=== PATIENT | female | born 1955 | race Caucasian/White ===

== ENCOUNTER 2018-01-09 10:58 | Day surgery (SDC) | END 2018-01-09 15:30 | disposition home or self-care (01) ==

== ENCOUNTER 2018-04-29 07:21 | Day surgery (SDC) | payer OTHER ==
[2018-04-28 14:36] VITALS: BMI 22.0
[2018-04-29] VITALS (16 sets, daily range): BP systolic 88–126; BP diastolic 47–70; PULSE 66–95; RESP 13–22; Ht 163.8 cm; Wt 58.5 kg
[~2018-04-29] VITALS: Ht 163.8 cm; Wt 58.5 kg
[~2018-04-29 07:21] MED LIST: CEFAZOLIN 2 GM/50 ML (PMX) 50 ML IVPB SCH; NO ACTIVE MEDS; SOD CHLORIDE 0.9% 1,000 ML IV SCH
--- NOTE | 2018-04-29 10:08 | PREAC ---
Date/Time of Note Date/Time of Note DATE: 04/29/18 TIME: 10:06 Anesthesia Eval and Record Evaluation Time Pre-Procedure Interview DATE: 04/29/18 TIME: 10:06 Age 62 Sex female NPO: 8 hrs Preoperative diagnosis hemorrhoids Planned procedure hemorrhoidectomy, anal advancement flap Past Medical History Past Medical History: Includes Cardio: Arrythmia (ST abnormality, has had heart cath and was told otherwise normal findings, sees plant mechanic once a year as planned. ASYMPTOMATIC. METS > 4. ) Surgery & Anesthesia Issues Hx of PONV (severe PONV every anesthetic) Meds Anticoagulation: No Beta Zuleyka within 24 hr: No Reason Beta Zuleyka not given: Pt. not on B-Zuleyka Discontinued Reported Medications [No Active Meds] No Conflict Check 01/09/18 Current Medications Cefazolin Sodium/ Dextrose 50 ml @ 100 mls/hr PREOP IVPB ; Start 04/29/18 at 06:00; Stop 04/29/18 at 17:00 Sodium Chloride 1,000 ml @ 75 mls/hr [id number] IV ; Start 04/29/18 at 06:00; Stop 04/29/18 at 17:00 Meds reviewed: Yes (NO MEDS) Allergies Coded Allergies: No Known Allergy (Unverified , 04/29/18) Allergies Reviewed: Yes Labs/Studies Labs Reviewed: Reviewed by anesthesiologist test: N/A Studies: ECG (NSR with ST abnormality), CXR Pre-procedure Exam Last vitals Vital Signs Date Temp Pulse Resp B/P (MAP) Pulse Ox O2 O2 Flow FiO2 Time Delivery Rate 04/29/18 98.1 95 16 116/70 98 08:52 (85) Airway: Adequate mouth opening, Adequate thyromental dist Mallampati: Mallampati I Teeth: Normal Lung: Normal Heart: Normal ASA Physical Status ASA physical status: 2 Emergency: None Planned Anesthetic General/MAC: ETT Planned Pain Management Parenteral pain med, Local by surgeon Pre-operative Attestations Prior to commencing anesthesia and surgery, the patient was re-evaluated, there was verification of: *The patient's identity *The results of appropriate recent lab work and preoperative vital signs *The above evaluation not changing prior to induction *Anesthetic plan, risk benefits, alternative and complications discussed with patient/family; questions answered; patient/family understands, accepts and wishes to proceed. DEMETRA LUNDYb 27, 2019 10:08
--- NOTE | 2018-04-29 11:40 | HPN ---
Date/Time of Note Date/Time of Note DATE: 04/29/18 TIME: 11:39 Interval H&P Admission Note Pt. seen H&P reviewed: No system changes DANNA COWART Apr 29, 2018 11:40
[2018-04-29] MEDS ORDERED: BUPIVACAINE 0.5%/EPI (SDV) 30 ML INJ ONE (11:49)
[2018-04-29] MEDS ORDERED: FENTAnyl 50 MCG/ML VIAL ONE (12:03)
[2018-04-29] MEDS ORDERED: GLYCOPYRROLATE 0.4 MG INJ ONE (12:15)
[2018-04-29] MEDS ORDERED: SUCCINYLCHOLINE CHLORIDE 100 MG/5 ML SYG IV ONE (12:15)
[2018-04-29] MEDS ORDERED: LIDOCAINE 100 MG SYRINGE ONE (12:15)
[2018-04-29] MEDS ORDERED: CEFAZOLIN 1 GM INJ ONE (12:15)
[2018-04-29] MEDS ORDERED: PROPOFOL 20 ML ONE (12:15)
[2018-04-29] MEDS ORDERED: NEOSTIGMINE 10 MG INJ ONE (12:15)
[2018-04-29] MEDS ORDERED: ROCURONIUM 50 MG INJ ONE (12:15)
[2018-04-29] MEDS ORDERED: ONDANSETRON 4 MG INJ ONE (12:41)
[2018-04-29] MEDS ORDERED: DEXAMETHASONE 4 MG/ML 5 ML INJ ONE (12:41)
[2018-04-29] MEDS ORDERED: ALBUTEROL 0.083% (NEB) 2.5 MG/3 ML AMP HHN PRN (13:00)
[2018-04-29] MEDS ORDERED: MEPERIDINE 25 MG INJ IV PRN (13:00)
[2018-04-29] MEDS ORDERED: ONDANSETRON 4 MG INJ IV PRN (13:00)
[2018-04-29] MEDS ORDERED: DIPHENHYDRAMINE 50 MG INJ IV PRN (13:00)
[2018-04-29] MEDS ORDERED: HYDROmorphONE 1 MG/5 ML IV SYRINGE IV PRN ×3 (13:00)
[2018-04-29] MEDS ORDERED: METOCLOPRAMIDE 10 MG INJ IV PRN (13:00)
[2018-04-29] MEDS ORDERED: FENTAnyl 50 MCG/ML VIAL IV PRN ×3 (13:00)
--- NOTE | 2018-04-29 13:36 | OPR ---
Date/Time of Note Date/Time of Note DATE: 04/29/18 TIME: 13:27 Operative Report Procedure Date: Apr 29, 2018 Preoperative Diagnosis Engorged grade III hemorrhoids left lateral posterior Postoperative Diagnosis Same Operation/Procedure Performed Excision of engorged internal and external hemorrhoids right posterior cushion Excision of engorged internal hemorrhoids left lateral cushion Rectal mucosal advancement flap Surgeon Jose De Jesus Cowart MD FACS Ncr Operator None Anesthesia Type: general Anesthesiologist: MARY VÁZQUEZ Estimated Blood Loss: 0 - 10 ml's Transfusion none Specimen Hemorrhoids left lateral cushion External and internal hemorrhoids right posterior cushion Grafts/Implants none Complications none Pt Condition Post Procedure: stable Disposition: PACU Indications This patient has been experiencing intermittent right red blood per rectum with bowel movements. She was diagnosed in the office with engorged internal and external hemorrhoids were causing pain discomfort and bleeding. For sym ptomatically she will undergo hemorrhoidectomy. Procedure Description Patient was placed in lithotomy position. 20 mL of a mixture of quarter percent Marcaine and 1% lidocaine were infiltrated in the anoderm. At the left lateral question where a large engorged hemorrhoid was noted internally internal hemorrhoids were grasped with the aid of a Álvaro clamp and thereafter the mucosa of the anorectal junction was incised with the use of the LigaSure device. The hemostat clamp was then used to create a mucosal flap the layer between the mucosa and the submucosa underneath within which the hemorrhoidal plexus could be visualized. The hemorrhoidal plexus was isolated using blunt dissection with a gauze pad away from the rectal sphincter muscle fibers and isolated. Thereafter the LigaSure device was used to transect across the hemorrhoidal plexus. The endoscope was then used to inspect the remaining hemorrhoids in the right posterior hemorrhoidal plexus was noted to be engorged. Again the mucosa was from the underlying venous hemorrhoidal plexus and these were circumferentially dissected off the anal sphincter muscle fibers and thereafter transected with the LigaSure device. The patient's rectal mucosa was noted to be retracting and therefore I determined that for hemostasis and improvement in functionality the patient would benefit from a fixing this mucosal flap to the anoderm. Using 4-0 chromic sutures the rectal mucosa was approximated with the area near the anoderm where the hemorrhoidal plexus was dissected and the hemorrhoidectomy was carried out. The area was not fully closed in order to allow for any hematoma or fluid in the dissected field to drain out. The area was inspected and confirmed to be hemostatic and thereafter fibrillar was rolled and the role of fibrillar was placed into the anus. Rectal exam upon completion of the procedure revealed no evidence of anal stenosis and confirmed the rectum to be hemostatic and no other abnormalities to exist except for hemorrhoidal plexus in the right anterior plexus which I left alone in order to prevent anal stenosis. JOSE DE JESUS COWART Apr 29, 2018 13:36
[2018-04-29] MEDS ORDERED: HYDROCODONE/APAP (5/325) TAB PO PRN ×2 (14:00)
--- NOTE | 2018-04-29 15:15 | PAC ---
Date/Time of Note Date/Time of Note DATE: 04/29/18 TIME: 15:15 Post-Anesthesia Notes Post-Anesthesia Note Last documented vital signs Vital Signs Date Temp Pulse Resp B/P (MAP) Pulse Ox O2 O2 Flow FiO2 Time Delivery Rate 04/29/18 78 13 101/59 98 Room Air 14:16 (73) 04/29/18 98.1 13:22 Activity: WNL Respiratory function: WNL Cardiovascular function: WNL Mental status: Baseline Pain reasonably controlled: Yes Hydration appropriate: Yes Nausea/Vomiting absent: Yes MARY VÁZQUEZ Apr 29, 2018 15:15
[2018-04-29] MEDS ORDERED: CALCIUM CARBONATE 500 MG CHEW TAB PO ONE (16:30)
[2018-04-29] MEDS ORDERED: IBUPROFEN 800 MG TAB PO SCH (21:00)
--- NOTE | 2018-04-30 07:22 | PAC ---
Date/Time of Note Date/Time of Note DATE: 04/30/18 TIME: 07:22 Post-Anesthesia Notes Post-Anesthesia Note Last documented vital signs Vital Signs Date Temp Pulse Resp B/P (MAP) Pulse Ox O2 O2 Flow FiO2 Time Delivery Rate 04/29/18 112/64 15:17 (80) 04/29/18 98.2 66 16 94 Room Air 14:27 Activity: WNL Respiratory function: WNL Cardiovascular function: WNL Mental status: Baseline Pain reasonably controlled: Yes Hydration appropriate: Yes Nausea/Vomiting absent: Yes MARY VÁZQUEZ Apr 30, 2018 07:22
== END 2018-04-29 18:45 | disposition home or self-care (01) ==
LOC: SDS 07:21
PROVIDERS: ATTEND Surgery Surgical Critical Care
DX: K64.1 Second degree hemorrhoids (principal)
CPT/HCPCS: 46260; 88304; J0690; J2001; J2175; J2710; J2765; J3010; Z7512; Z7610; J1100; J2405

== ENCOUNTER 2018-08-05 06:43 | Day surgery (SDC) | payer OTHER ==
[2018-08-05] VITALS (11 sets, daily range): BP systolic 68–123; BP diastolic 43–77; PULSE 75–96; RESP 13–22; Ht 165.1 cm; Wt 60.2 kg
[~2018-08-05] VITALS: Ht 165.1 cm; Wt 60.2 kg
[2018-08-05] MEDS ORDERED: MELO15TA30 PO (07:47)
[2018-08-05] MEDS ORDERED: POLY17PO6 PO (07:47)
[2018-08-05] MEDS ORDERED: CEFAZOLIN 1 GM/50 ML (PMX) 50 ML IVPB ONE (10:00)
[2018-08-05] MEDS ORDERED: SOD CHLORIDE 0.9% 1,000 ML IV SCH (10:00)
--- NOTE | 2018-08-05 10:08 | PREAC ---
Date/Time of Note Date/Time of Note DATE: 08/05/18 TIME: 10:03 Anesthesia Eval and Record Evaluation Time Pre-Procedure Interview DATE: 08/05/18 TIME: 10:02 Age 62 Sex female NPO: 8 hrs Preoperative diagnosis anal stenosis Planned procedure anal exam under anesthesia Past Medical History Past Medical History: Includes (hemorrhoids) Cardio: Other (WPW w/ radiofrequency ablation) Pulm: Asthma (cat induced asthma) Surgery & Anesthesia Issues Hx of PONV (hx hemorrhoidectomy and radiofrequency ablation 3 yrs ago; knee surgeries) Meds Anticoagulation: No Beta Zuleyka within 24 hr: No Reason Beta Zuleyka not given: Pt. not on B-Zuleyka Reported Medications Meloxicam* (Mobic*) 15 Mg Tablet, 15 MG PO DAILY, #30 TAB 08/05/18 Polyethylene Glycol* (Miralax*) 17 Gm Powd.pack, 17 GM PO DAILY, #30 PACKET 08/05/18 Current Medications Cefazolin Sodium 50 ml @ 100 mls/hr PRE-OP ONCE IVPB ; Start 08/05/18 at 10:00; Stop 08/05/18 at 10:29 Sodium Chloride 1,000 ml @ 75 mls/hr [id number] IV Last administered on 08/05/18at 07:59; Admin Dose 75 MLS/HR; Start 08/05/18 at 10:00; Stop 08/05/18 at 23:19 Meds reviewed: Yes Allergies Coded Allergies: No Known Allergy (Unverified , 08/05/18) Allergies Reviewed: Yes Labs/Studies Labs Reviewed: Reviewed by anesthesiologist Result Diagram: 08/05/18 0747 08/05/18 0747 Laboratory Tests 08/05/18 07:47 test: N/A Studies: ECG (nsr) Pre-procedure Exam Last vitals Vital Signs Date Temp Pulse Resp B/P (MAP) Pulse Ox O2 O2 Flow FiO2 Time Delivery Rate 08/05/18 97.6 80 16 119/77 100 Room Air 08:20 (91) Airway: Adequate mouth opening, Adequate thyromental dist Mallampati: Mallampati II Teeth: Normal Lung: Normal Heart: Normal ASA Physical Status ASA physical status: 2 Emergency: None Planned Anesthetic General/MAC: ETT Pre-operative Attestations Prior to commencing anesthesia and surgery, the patient was re-evaluated, there was verification of: *The patient's identity *The results of appropriate recent lab work and preoperative vital signs *The above evaluation not changing prior to induction *Anesthetic plan, risk benefits, alternative and complications discussed with patient/family; questions answered; patient/family understands, accepts and wishes to proceed. KATELYN PARKINSON Aug 05, 2018 10:08
[2018-08-05] MEDS ORDERED: ROCURONIUM 50 MG INJ ONE (10:16)
[2018-08-05] MEDS ORDERED: LIDOCAINE 2% (SDV) 5 ML INJ ONE (10:16)
[2018-08-05] MEDS ORDERED: CEFAZOLIN 1 GM INJ ONE (10:16)
[2018-08-05] MEDS ORDERED: PROPOFOL 60 ML ONE (10:16)
[2018-08-05] MEDS ORDERED: FAMOTIDINE 20 MG INJ ONE (10:17)
[2018-08-05] MEDS ORDERED: FENTAnyl 50 MCG/ML VIAL ONE (10:17)
[2018-08-05] MEDS ORDERED: ONDANSETRON 4 MG INJ ONE (10:17)
[2018-08-05] MEDS ORDERED: DEXAMETHASONE 4 MG/ML 5 ML INJ ONE (10:17)
[2018-08-05] MEDS ORDERED: DIPHENHYDRAMINE 50 MG INJ IV PRN (10:30)
[2018-08-05] MEDS ORDERED: morphine 2 MG INJ IV PRN ×2 (10:30)
[2018-08-05] MEDS ORDERED: FENTAnyl 50 MCG/ML VIAL IV PRN ×2 (10:30)
[2018-08-05] MEDS ORDERED: OXYCODONE/ACETAMINOPHEN (5/325) TAB PO PRN ×2 (10:30)
[2018-08-05] MEDS ORDERED: ALBUTEROL 0.083% (NEB) 2.5 MG/3 ML AMP HHN PRN (10:30)
[2018-08-05] MEDS ORDERED: ONDANSETRON 4 MG INJ IV PRN (10:30)
[2018-08-05] MEDS ORDERED: LABETALOL HCL 20MG INJ IV PRN (10:30)
[2018-08-05] MEDS ORDERED: MEPERIDINE 25 MG INJ IV PRN (10:30)
[2018-08-05] MEDS ORDERED: HYDROmorphONE 1 MG/5 ML IV SYRINGE IV PRN ×3 (10:30)
[2018-08-05] MEDS ORDERED: LIDOCAINE 1% (MPF) 30 ML INJ ONE (11:11)
[2018-08-05] MEDS ORDERED: EPHEDrine 25 MG/5 ML SYG ONE (11:12)
[2018-08-05] MEDS ORDERED: SUGAMMADEX SODIUM 200 MG/2 ML VIAL IV ONE (11:34)
[2018-08-05] MEDS ORDERED: LIDOCAINE 1%/EPI 30 ML INJ INJ ONE (11:35)
[2018-08-05] MEDS ORDERED: LIDOCAINE 1%/EPI 30 ML INJ ONE (11:38)
--- NOTE | 2018-08-05 11:54 | OPR ---
Date/Time of Note Date/Time of Note DATE: 08/05/18 TIME: 11:50 Operative Report Procedure Date: Aug 05, 2018 Preoperative Diagnosis Anal stenosis Postoperative Diagnosis Same Operation/Procedure Performed Anoscopy exam under anesthesia Rectal dilation under general anesthesia Surgeon see signature line Hvac Installation Technician None Anesthesia Type: general Estimated Blood Loss: 0 - 10 ml's Transfusion none Specimen None Grafts/Implants none Complications none Pt Condition Post Procedure: stable Disposition: PACU Indications This patient is status post hemorrhoidectomy and developed anal stenosis following the procedure. In order to assess the wound which is very tender she will undergo exam under anesthesia with anal dilation for symptomatically relief. We are currently awaiting a formal colorectal surgery evaluation however due to O purposes this is not available for another month. As a temporizing measure I will do this exam and dilation and if this initial therapy fails the patient will follow up with colorectal surgery for formal anoplasty or any other procedure deemed necessary. Procedure Description Patient was placed in lithotomy position. Perianal nerve block was carried out using 20 mL of 1% lidocaine with epinephrine. The anus was examined and noted to be very tight at 1 cm. Serial Hegar dilators were placed slowly dilating the anal rectal orifice until 18 [place] was inserted. As the dilation occurred scar tissue at the area of the hemorrhoidectomy was noted to stretch and thereafter ripped open. Some bleeding accompanied this. The anoderm that was hemorrhaging was further anesthetized with some lidocaine and thereafter all small areas of oozing were controlled with electrocautery. The sphincter appeared to be intact and the surgical bed appeared to be hemostatic. The anus was noted to be able to fully accommodate 2 fingers easily without any resistance. Gelfoam was rolled and placed into the anus as a dressing and to aid in hemostasis. Patient tolerated the procedure well. Patient was dispositioned to recovery suite in stable condition. DANNA COWART Aug 05, 2018 11:54
--- NOTE | 2018-08-05 12:09 | PAC ---
Date/Time of Note Date/Time of Note DATE: 08/05/18 TIME: 12:07 Post-Anesthesia Notes Post-Anesthesia Note Last documented vital signs Vital Signs Date Temp Pulse Resp B/P Pulse Ox O2 O2 Flow FiO2 Time (MAP) Delivery Rate 08/05/18 97.6 99.3 80 89 16 16 119/77 100 100 Room 08:20 115 (91) 123 Air RA Activity: WNL Respiratory function: WNL Cardiovascular function: WNL Mental status: Baseline Pain reasonably controlled: Yes Hydration appropriate: Yes Nausea/Vomiting absent: Yes KATELYN PARKINSON Aug 05, 2018 12:09
[2018-08-05] MEDS ORDERED: FAMOTIDINE 20 MG INJ IV ONE (13:00)
[2018-08-05] MEDS ORDERED: ALUMINUM HYDROXIDE 30 ML CUP PO ONE (13:00)
--- NOTE | 2018-08-05 16:35 | RADRPT ---
Vent Rate: 66 bpm RR Interval: 908 msec HI Interval: 165 msec QRS Duration: 86 msec QT Interval: 394 msec QTC Interval: 413 msec P-R-T [place]: 54 - 56 - 36 degrees Sinus rhythm...normal P axis, V-rate 50- 99 Electronically Signed By: Luther Galvan
== END 2018-08-05 14:40 | disposition home or self-care (01) ==
LOC: SDS 06:43
PROVIDERS: ATTEND Surgery Surgical Critical Care
DX: K62.4 Stenosis of anus and rectum (principal); J45.909 Unspecified asthma, uncomplicated
CPT/HCPCS: 46604; 71045; 80048; 85025; 85610; 85730; 93005; J0690; J1100; J2175; J2405; J3010; Z7512; Z7610